=== PATIENT | female | born 1960 | race African-American/Black ===

== ENCOUNTER 2017-10-16 09:27 | Outpatient (CLI) | payer OTHER ==
--- NOTE | 2017-10-16 22:56 | XRay Report ---
FINAL REPORT PROCEDURE: XR KNEE 1-2V RT TECHNIQUE: RIGHT knee radiographs, AP and lateral views. CPT 26150 HISTORY: LUMBAGO WITH SCIATICE RIGHT SIDE, FROZEN SHOULDER COMPARISON: No prior studies are available for comparison. FINDINGS: Fracture (s) and/or Dislocation(s): None . Alignment: Normal . Joint space(s): Normal . Soft tissues: Normal . Bone mineralization: Normal . Foreign bodies: None . IMPRESSION: Normal Examination.
--- NOTE | 2017-10-16 22:57 | XRay Report ---
FINAL REPORT PROCEDURE: XR SHOULDER 2+V LT TECHNIQUE: LEFT shoulder radiographs including AP views in internal and external rotation and abduction. CPT 91607 HISTORY: LUMBAGO WITH SCIATICE RIGHT SIDE, FROZEN SHOULDER COMPARISON: No prior studies are available for comparison. FINDINGS: Fracture (s) and/or Dislocation(s): None . Joint space(s): There is narrowing of acromioclavicular joint space with mild degree osteophyte formation. Soft tissues: Normal . Bone mineralization: Normal . Foreign bodies: None . IMPRESSION: Osteoarthritis left acromioclavicular joint.
== END 2017-10-16 09:28 | disposition home or self-care (01) ==
LOC: XRAY 09:27
PROVIDERS: ATTEND Internal Medicine
DX: M19.012 Primary osteoarthritis, left shoulder (principal); M25.50 Pain in unspecified joint; M54.41 Lumbago with sciatica, right side